=== PATIENT | female | born 1975 | race African-American/Black ===

== ENCOUNTER 2020-09-28 12:14 | Inpatient (IN) | payer MEDICAID ==
[~2020-09-28] VITALS: Ht 160 cm; Wt 100.4 kg
[2020-09-28] MEDS ORDERED: SODIUM CHLORIDE 0.9% 500 ML IV ONE (12:45)
[2020-09-28 13:27] LABS: Basophils # (auto) 0 10 ^3/uL (0-0.2); Basophils % (auto) 0.1 % (0.0-2.0); Hematocrit 32.2 % (36.0-46.0); Lymphocytes # (auto) 1.4 10 ^3/uL (0.4-5.4); Mean Corpuscular Hgb Conc. 31.2 g/dL (32.0-36.0)
[2020-09-28 13:28] LABS: Eosinophils # (auto) 0.6 10 ^3/uL (0-0.8); Eosinophils % (auto) 6.9 % (0.0-7.0); Lymphocytes % (auto) 17.1 % (10.0-50.0); Mean Corpuscular Hemoglobin 23.1 pg (28.0-32.0); Mean Corpuscular Volume 74.2 fL (80.0-100.0); Monocytes # (auto) 0.6 10 ^3/uL (0-1.3); Monocytes % (auto) 7.3 % (0.0-12.0); Neutrophils # (auto) 5.7 10 ^3/uL (1.6-8.6); Neutrophils % (auto) 68.6 % (37.0-80.0); Red Blood Cells 4.34 10^6/uL (4.0-5.20); Red Cell Distribution Width 19.2 % (11.8-14.3); White Blood Cell 8.3 10^3/uL (4.4-10.8)
[2020-09-28 13:41] LABS: Albumin 3.5 g/dL (3.4-5.0); Calcium 9.7 mg/dL (8.5-10.1)
[2020-09-28 13:44] LABS: BUN/Creatinine Ratio 12.2; Bilirubin, Total 0.6 mg/dL (0.2-1.0); Total Protein 8.5 g/dL (6.4-8.2)
[2020-09-28 14:25] LABS: Potassium 1.4 mmol/L (3.5-5.1)
[2020-09-28] MEDS ORDERED: POTASSIUM CHL 20MEQ/100ML 100 ML IV ONE (15:00)
[2020-09-28] MEDS ORDERED: POTASSIUM CHL 20 Meq TABLET PO ONE (15:00)
[2020-09-28] MEDS: POTASSIUM CHL 20MEQ/100ML 100 ML IV SCH ×3 (15:45→19:27)
[2020-09-28] MEDS ORDERED: MORPHINE SULF INJ 2 MG/ML SYRINGE 1ML IV PRN (15:45)
[2020-09-28] MEDS ORDERED: NITROGLYCERIN 0.4 MG SL TAB SL PRN (15:45)
[2020-09-28] MEDS ORDERED: ASPI-231 PO (15:46)
[2020-09-28] MEDS ORDERED: ATOR20TA PO (15:46)
[2020-09-28] MEDS ORDERED: POTA10TA51 PO (15:46)
[2020-09-28] MEDS ORDERED: HYDR25TA5 PO (15:46)
[2020-09-28] MEDS ORDERED: AMLO-489 PO (15:46)
[2020-09-28] MEDS ORDERED: CHOL20007 PO (15:46)
[2020-09-28] MEDS ORDERED: METO25TA5 PO (15:46)
[2020-09-28] MEDS ORDERED: SOD CHL 0.9%/ KCL 20MEQ 1,000 ML IV ONE (16:15)
[2020-09-28] MEDS: SOD CHL 0.9%/ KCL 40MEQ 1,000 ML IV SCH ×2 (21:15→22:30)
[2020-09-29 00:09] LABS: Albumin 3.6 g/dL (3.4-5.0); BUN/Creatinine Ratio 9.3; Calcium 9.6 mg/dL (8.5-10.1)
[2020-09-29 00:12] LABS: Bilirubin, Total 0.6 mg/dL (0.2-1.0); Total Protein 8.1 g/dL (6.4-8.2)
[2020-09-29 00:14] LABS: Potassium 1.3 mmol/L (3.5-5.1)
[2020-09-29] MEDS ORDERED: POTASSIUM CHL 20 Meq TABLET PO ONE (00:45)
[2020-09-29 01:00] VITALS: BP 135/74
[2020-09-29] MEDS: POTASSIUM CHL 20MEQ/100ML 100 ML IV SCH ×5 (01:13→22:09)
[2020-09-29 03:17] LABS: Urine Bacteria NONE SEEN /hpf (None Seen); Urine Blood 3+ /uL (Negative); Urine Specific Gravity 1.006 (1.001-1.035); Urine WBC 3 /hpf (0 - 5)
[2020-09-29 03:32] LABS: Amphetamine Screen, Urine NEGATIVE (NEGATIVE); Barbiturate Scree,Urine NEGATIVE (NEGATIVE); Benzodiazephine Screen, Urine NEGATIVE (NEGATIVE); Cannabinoid Screen, Urine POSITIVE (NEGATIVE); Cocaine Screen, Urine NEGATIVE (NEGATIVE); Opiate Scree,Urine NEGATIVE (NEGATIVE); Phencyclidine Screen, Urine NEGATIVE (NEGATIVE)
[2020-09-29 03:36] LABS: Sodium Urine 86 mmol/L (40-220)
[2020-09-29 04:04] LABS: Alcohol, Urine < 3.0 mg/dL (0-10)
[2020-09-29 05:30] VITALS: BP 121/70
[2020-09-29 06:04] LABS: Basophils # (auto) 0 10 ^3/uL (0-0.2); Hemoglobin 9.6 g/dL (12.2-16.2); Lymphocytes # (auto) 1.3 10 ^3/uL (0.4-5.4); Monocytes # (auto) 0.7 10 ^3/uL (0-1.3); Neutrophils # (auto) 5.4 10 ^3/uL (1.6-8.6)
[2020-09-29 06:06] LABS: Basophils % (auto) 0.4 % (0.0-2.0); Eosinophils # (auto) 0.5 10 ^3/uL (0-0.8); Eosinophils % (auto) 6.6 % (0.0-7.0); Hematocrit 29.8 % (36.0-46.0); Lymphocytes % (auto) 16.7 % (10.0-50.0); Mean Corpuscular Hemoglobin 23.9 pg (28.0-32.0); Mean Corpuscular Hgb Conc. 32.2 g/dL (32.0-36.0); Mean Corpuscular Volume 74.1 fL (80.0-100.0); Monocytes % (auto) 9.2 % (0.0-12.0); Neutrophils % (auto) 67.1 % (37.0-80.0); Nucleated Red Blood Cells % 0.1 %; Red Blood Cells 4.03 10^6/uL (4.0-5.20); Red Cell Distribution Width 19.6 % (11.8-14.3)
[2020-09-29 06:08] LABS: BUN/Creatinine Ratio 11.6; Calcium 9.1 mg/dL (8.5-10.1)
[2020-09-29 06:36] LABS: Potassium 1.4 mmol/L (3.5-5.1)
[2020-09-29] MEDS: SOD CHL 0.9%/ KCL 40MEQ 1,000 ML IV SCH (08:29)
[2020-09-29 09:00] VITALS: BP 131/69
[2020-09-29] MEDS ORDERED: POTASSIUM CHL 20 Meq TABLET PO SCH ×2 (10:00)
[2020-09-29] MEDS: ASPirin-EC 81 mg tab PO SCH (10:36)
[2020-09-29] MEDS: POTASSIUM CHL 20 Meq TABLET PO SCH ×2 (10:37→22:10)
[2020-09-29] MEDS: METOPROLOL TARTRATE 25 MG TAB PO SCH (10:38)
[2020-09-29] MEDS: amLODIPine BESYLATE 5 MG TAB PO SCH (10:38)
[2020-09-29] MEDS: POTASSIUM CHLORIDE 40 MEQ in SOD CHL 0.45% 1,000 ML IV SCH ×2 (11:28→20:27)
[2020-09-29 13:00] VITALS: BP 128/75
[2020-09-29 13:46] LABS: Calcium 9.4 mg/dL (8.5-10.1)
[2020-09-29 13:53] LABS: BUN/Creatinine Ratio 10.1
[2020-09-29 14:00] LABS: Potassium 1.6 mmol/L (3.5-5.1)
[2020-09-29 17:00] VITALS: BP 126/61
[2020-09-29 21:53] LABS: Potassium 1.5 mmol/L (3.5-5.1)
[2020-09-29 22:00] VITALS: BP 130/74
[2020-09-29] MEDS: ATORVASTATIN 20 MG TAB PO SCH (22:10)
[2020-09-30] MEDS: POTASSIUM CHL 20MEQ/100ML 100 ML IV SCH ×3 (00:03→22:26)
[2020-09-30 05:00] VITALS: BP 113/67
[2020-09-30 05:45] LABS: BUN/Creatinine Ratio 8.9; Calcium 8.6 mg/dL (8.5-10.1)
[2020-09-30 06:19] LABS: Potassium 1.6 mmol/L (3.5-5.1)
[2020-09-30] MEDS ORDERED: POTASSIUM CHL 20MEQ/100ML 100 ML IV ONE (07:30)
[2020-09-30] MEDS ORDERED: MAGNESIUM SULFATE 1GM/100ML 100 ML IV ONE (07:30)
[2020-09-30] MEDS: POTASSIUM CHL 20 Meq TABLET PO SCH ×4 (07:53→22:25)
[2020-09-30] MEDS: POTASSIUM CHLORIDE 40 MEQ in SOD CHL 0.45% 1,000 ML IV SCH ×3 (07:53→21:06)
[2020-09-30 09:00] VITALS: BP 126/73
[2020-09-30] MEDS: METOPROLOL TARTRATE 25 MG TAB PO SCH (09:22)
[2020-09-30] MEDS: ASPirin-EC 81 mg tab PO SCH (09:22)
[2020-09-30] MEDS: amLODIPine BESYLATE 5 MG TAB PO SCH (09:23)
[2020-09-30] MEDS ORDERED: SPIRONOLACTONE 25 MG TAB PO ONE (12:15)
[2020-09-30 12:54] VITALS: BP 135/83
[2020-09-30 13:26] LABS: BUN/Creatinine Ratio 6.8; Calcium 8.5 mg/dL (8.5-10.1)
[2020-09-30 13:33] LABS: Potassium 1.8 mmol/L (3.5-5.1)
[2020-09-30] MEDS: SPIRONOLACTONE 25 MG TAB PO SCH (16:40)
[2020-09-30 16:54] VITALS: BP 104/74
[2020-09-30 21:45] LABS: BUN/Creatinine Ratio 7.8; Calcium 8.3 mg/dL (8.5-10.1)
[2020-09-30 22:00] VITALS: BP 120/75
[2020-09-30 22:05] LABS: Potassium 2.1 mmol/L (3.5-5.1)
[2020-09-30] MEDS: ATORVASTATIN 20 MG TAB PO SCH (22:25)
[2020-10-01] MEDS: POTASSIUM CHL 20MEQ/100ML 100 ML IV SCH ×5 (00:26→21:13)
[2020-10-01] MEDS: POTASSIUM CHLORIDE 40 MEQ in SOD CHL 0.45% 1,000 ML IV SCH ×3 (03:41→20:11)
[2020-10-01 05:00] VITALS: BP 120/53
[2020-10-01] MEDS: POTASSIUM CHL 20 Meq TABLET PO SCH ×4 (05:53→21:13)
[2020-10-01] MEDS: SPIRONOLACTONE 25 MG TAB PO SCH ×2 (05:53→17:22)
[2020-10-01 06:46] LABS: Basophils # (auto) 0 10 ^3/uL (0-0.2); Basophils % (auto) 0.3 % (0.0-2.0); Eosinophils # (auto) 0.6 10 ^3/uL (0-0.8); Eosinophils % (auto) 7.9 % (0.0-7.0); Hematocrit 28.4 % (36.0-46.0); Hemoglobin 8.9 g/dL (12.2-16.2); Lymphocytes # (auto) 1.6 10 ^3/uL (0.4-5.4); Lymphocytes % (auto) 22.4 % (10.0-50.0); Mean Corpuscular Hemoglobin 23.7 pg (28.0-32.0); Mean Corpuscular Hgb Conc. 31.6 g/dL (32.0-36.0); Monocytes # (auto) 0.5 10 ^3/uL (0-1.3); Monocytes % (auto) 7.9 % (0.0-12.0); Neutrophils # (auto) 4.3 10 ^3/uL (1.6-8.6); Neutrophils % (auto) 61.5 % (37.0-80.0); Nucleated Red Blood Cells % 0.1 %; Red Blood Cells 3.78 10^6/uL (4.0-5.20); Red Cell Distribution Width 19.6 % (11.8-14.3)
[2020-10-01 07:03] LABS: Calcium 7.5 mg/dL (8.5-10.1)
[2020-10-01 09:00] VITALS: BP 126/73
[2020-10-01] MEDS: ASPirin-EC 81 mg tab PO SCH (10:00)
[2020-10-01] MEDS: amLODIPine BESYLATE 5 MG TAB PO SCH (10:01)
[2020-10-01] MEDS ORDERED: POTASSIUM CHL 20MEQ/100ML 100 ML IV SCH (10:30)
[2020-10-01 17:00] VITALS: BP 118/78
[2020-10-01 19:20] LABS: BUN/Creatinine Ratio 6.4; Calcium 7.1 mg/dL (8.5-10.1)
[2020-10-01 19:37] LABS: Potassium 2.5 mmol/L (3.5-5.1)
[2020-10-01] MEDS: ATORVASTATIN 20 MG TAB PO SCH (21:13)
[2020-10-01 22:00] VITALS: BP 133/100
[2020-10-02] MEDS: POTASSIUM CHLORIDE 40 MEQ in SOD CHL 0.45% 1,000 ML IV SCH ×5 (00:18→21:48)
[2020-10-02 02:54] LABS: Creatinine, Urine 15 mg/dL (30.0-125.0)
[2020-10-02 05:00] VITALS: BP_SYST 123; BP_SYST 129; BP_DIAS 75; BP_DIAS 81
[2020-10-02] MEDS: SPIRONOLACTONE 25 MG TAB PO SCH ×2 (05:13→18:00)
[2020-10-02] MEDS: POTASSIUM CHL 20 Meq TABLET PO SCH ×4 (05:14→21:12)
[2020-10-02 06:38] LABS: Basophils # (auto) 0 10 ^3/uL (0-0.2); Monocytes # (auto) 0.5 10 ^3/uL (0-1.3); Monocytes % (auto) 7.9 % (0.0-12.0); Red Cell Distribution Width 19.9 % (11.8-14.3)
[2020-10-02 06:40] LABS: Basophils % (auto) 0.4 % (0.0-2.0); Eosinophils # (auto) 0.6 10 ^3/uL (0-0.8); Eosinophils % (auto) 9.4 % (0.0-7.0); Hematocrit 29.7 % (36.0-46.0); Hemoglobin 9.5 g/dL (12.2-16.2); Lymphocytes # (auto) 1.6 10 ^3/uL (0.4-5.4); Lymphocytes % (auto) 23.4 % (10.0-50.0); Mean Corpuscular Hemoglobin 23.9 pg (28.0-32.0); Mean Corpuscular Hgb Conc. 31.8 g/dL (32.0-36.0); Mean Corpuscular Volume 75.1 fL (80.0-100.0); Neutrophils % (auto) 58.9 % (37.0-80.0); Red Blood Cells 3.95 10^6/uL (4.0-5.20); White Blood Cell 6.8 10^3/uL (4.4-10.8)
[2020-10-02 07:02] LABS: BUN/Creatinine Ratio 5.1
[2020-10-02 07:23] LABS: Potassium 2.7 mmol/L (3.5-5.1)
[2020-10-02 09:00] VITALS: BP 117/74
[2020-10-02] MEDS: ASPirin-EC 81 mg tab PO SCH (09:45)
[2020-10-02] MEDS: amLODIPine BESYLATE 5 MG TAB PO SCH (09:45)
[2020-10-02] MEDS: POTASSIUM CHL 20MEQ/100ML 100 ML IV SCH ×3 (11:30→18:40)
[2020-10-02 13:00] VITALS: BP 131/88
[2020-10-02 17:00] VITALS: BP 119/79
[2020-10-02] MEDS ORDERED: POTASSIUM CHL 20MEQ/100ML 100 ML IV ONE (18:10)
[2020-10-02 18:44] LABS: BUN/Creatinine Ratio 6.1; Calcium 7.1 mg/dL (8.5-10.1); Potassium 3.2 mmol/L (3.5-5.1)
[2020-10-02] MEDS: ATORVASTATIN 20 MG TAB PO SCH (21:12)
[2020-10-02 22:00] VITALS: BP 125/72
[2020-10-03 01:35] LABS: BUN/Creatinine Ratio 5.6; Calcium 7.2 mg/dL (8.5-10.1); Potassium 3.4 mmol/L (3.5-5.1)
[2020-10-03] MEDS: POTASSIUM CHLORIDE 40 MEQ in SOD CHL 0.45% 1,000 ML IV SCH ×2 (03:37→10:18)
[2020-10-03 05:00] VITALS: BP 100/55
[2020-10-03] MEDS: SPIRONOLACTONE 25 MG TAB PO SCH (05:45)
[2020-10-03] MEDS: POTASSIUM CHL 20 Meq TABLET PO SCH ×2 (05:46→12:07)
[2020-10-03 09:00] VITALS: BP 132/76
[2020-10-03] MEDS ORDERED: POTASSIUM CHL 20MEQ/100ML 100 ML IV SCH (10:00)
[2020-10-03] MEDS: amLODIPine BESYLATE 5 MG TAB PO SCH (10:04)
[2020-10-03] MEDS: ASPirin-EC 81 mg tab PO SCH (10:04)
[2020-10-03 11:08] LABS: Calcium 7.7 mg/dL (8.5-10.1); Potassium 3.6 mmol/L (3.5-5.1)
[2020-10-03] MEDS ORDERED: POTA-220 PO (12:20)
[2020-10-03] MEDS ORDERED: SPIR25TA PO (12:20)
[2020-10-03 12:49] VITALS: BP 124/77
[2020-10-03 14:06] VITALS: BP 131/79
[2020-10-03 16:54] VITALS: BP 116/70
== END 2020-10-03 17:23 | disposition home health service (06) | DRG 425 ==
LOC: ER 12:14 → TELE 15:41 → TELE-WESTW 23:53
PROVIDERS: ADMIT Internal Medicine; ATTEND Internal Medicine
DX: E87.6 Hypokalemia (principal); N17.9 Acute kidney failure, unspecified; D64.9 Anemia, unspecified; E78.5 Hyperlipidemia, unspecified; I10 Essential (primary) hypertension; Z82.49 Family history of ischemic heart disease and other diseases of the circulatory system; Z20.822 Contact with and (suspected) exposure to COVID-19; T50.2X5A Adverse effect of carbonic-anhydrase inhibitors, benzothiadiazides and other diuretics, initial encounter
CPT/HCPCS: 36415; 73130; 80048; 80053; 80307; 81001; 82088; 82533; 82570; 82962; 83036; 83735; 83835; 83930; 83935; 84133; 84244; 84300; 85025; 87426; 93005; 96365; 99291; G0378; J3480